=== PATIENT | male | born 1960 | race Caucasian/White ===

== ENCOUNTER 2025-04-21 09:59 | Outpatient (CLI) | payer MEDICARE, BC ==
[~2025-04-21 09:59] MED LIST: IBUP200C5 PO; LORA-512 PO
--- NOTE | 2025-04-21 16:16 | RADIOLOGY REPORT ---
CLINICAL INDICATION: PAIN IN LEFT SHOULDER;CALCIFIC TENDINITIS OF LEFT SHOULDER COMPARISON: None TECHNIQUE: Multiplanar, multisequence MRI of the left shoulder was performed without contrast. Contrast: None FINDINGS: Glenohumeral joint: There is no fracture or bone marrow edema. Alignment is maintained. There is chondral thinning in the humeral head. There is no joint effusion or synovitis. Acromioclavicular joint: The acromioclavicular joint is narrowed with capsular hypertrophy. There is a type 2 acromion. Rotator cuff and bursae: There is supraspinatus tendinosis and a 6 mm low signal intensity focus in the supraspinatus tendon. There is infraspinatus tendinosis without tear. The subsequently and teres minor tendon is intact. There is no regional muscle atrophy. There is fluid distention in the subacromial subdeltoid bursa. Biceps tendon and glenoid labrum: The long head biceps tendon is located within the bicipital groove and intact. The labrum is unremarkable. IMPRESSION: 1. Supraspinatus tendinosis and 6 mm low signal intensity focus in the supraspinatus tendon compatible with calcific tendinitis in the left shoulder. 2. Infraspinatus tendinosis. 3. Subacromial subdeltoid bursitis.
== END 2025-04-21 23:59 | disposition home or self-care (01) ==
LOC: MRI02 09:59
PROVIDERS: ATTEND Physician Assistant Surgical
DX: M75.102 Unspecified rotator cuff tear or rupture of left shoulder, not specified as traumatic (principal); M25.512 Pain in left shoulder; M75.32 Calcific tendinitis of left shoulder; M75.52 Bursitis of left shoulder
CPT/HCPCS: 73221